=== PATIENT | male | born 1985 | race Caucasian/White ===

== ENCOUNTER 2021-07-20 16:47 | Emergency (ER) | payer BC, SELFPAY ==
[2021-07-20 17:33] VITALS: BP 133/101; PULSE 91; RESP 18; TEMP 36.3; O2SAT 100
--- NOTE | 2021-07-20 17:59 | ED.GENADULT ---
HPI - General Adult General Chief complaint: Ear Stated complaint: ringing in both ears Time Seen by Provider: 07/20/21 17:49 Source: patient and RN notes reviewed Mode of arrival: ambulatory Limitations: no limitations History of Present Illness HPI narrative: Patient presents today complaining of a 2.5-week history of bilateral ear pressure, sinus pressure and congestion. He had been taking Sudafed, which helped with his nasal congestion, and this has mostly resolved. The ear pressure and sinus pressure has persisted. He also reports muffled hearing bilaterally. Denies ear pain. He took 2-1/2 days of an old prescription of amoxicillin, which she does state has helped slightly. MD complaint: Ear pressure, sinus pressure Related Data Allergies Allergy/AdvReac Type Severity Reaction Status Date / Time No Known Allergies Allergy Verified 07/20/21 17:38 Review of Systems Review of Systems: CONSTITUTIONAL: Denies body aches, fever, chills, or sweats. EYES: Denies visual changes, redness, or discharge. ENT: Denies rhinorrhea, congestion, sore throat, or otalgia.+ Ear pressure, sinus pressure CARDIOVASCULAR: Denies chest pain, palpitations, or edema. RESPIRATORY: Denies cough or dyspnea. GASTROINTESTINAL: Denies abdominal pain, nausea, vomiting, or diarrhea. GENITOURINARY: Denies dysuria or hematuria. SKIN: Denies rash, itching, or wounds. MUSCULOSKELETAL: Denies back pain, joint pain, or myalgia. NEUROLOGIC: Denies headache, numbness, tingling, or weakness. PSYCH: Denies depression or anxiety. PMFSH Comments At time of signature, I have reviewed and agree with nursing past medical, surgical, social and family history unless otherwise noted. Please see nursing chart for further information. There is no relevant family history pertinent to the presenting complaint Exam Narrative: GENERAL: Well-appearing, well-nourished, and in no acute distress. HEAD: Normocephalic, atraumatic. EYES: EOMI. No redness or drainage. Conjunctivae normal. ENT: Mucous membranes pink and moist. Nares clear. No rhinorrhea. Bilateral TMs are injected and have purulent discharge behind them, R>L. Throat normal. Bilateral frontal and maxillary sinus tenderness. Uvula midline. NECK: Normal AROM. Supple. No lymphadenopathy. CHEST: No respiratory distress. Clear to auscultation. HEART: Regular rate and rhythm. No murmur appreciated. Normal peripheral pulses. ABDOMEN: Soft, nontender, nondistended, normal active bowel sounds. MUSCULOSKELETAL: No bony tenderness. EXTREMITIES: Normal range of motion. No edema. SKIN: Warm, dry, no rash. Capillary refill normal. Normal skin turgor. NEURO: No focal deficits. Alert and oriented x3. Gait steady. PSYCH: Normal affect. No signs of depression or anxiety. Course Course Level of Care: Express Care Visit Vital Signs Vital signs: Vital Signs Temperature 97.4 F L 07/20/21 17:33 Pulse Rate 91 07/20/21 17:33 Respiratory Rate 18 07/20/21 17:33 Blood Pressure 133/101 H 07/20/21 17:33 Pulse Oximetry 100 07/20/21 17:33 Temperature 97.4 F L 07/20/21 17:33 Pulse Rate 91 07/20/21 17:33 Respiratory Rate 18 07/20/21 17:33 Blood Pressure 133/101 H 07/20/21 17:33 Pulse Oximetry 100 07/20/21 17:33 Reviewed. Pt has been instructed to follow up with his PCP regarding his elevated blood pressure today. Medical Decision Making Differential Diagnosis Differential Diagnosis: Otitis media, sinusitis, URI, rhinitis, otitis externa Vital Signs Vital Signs: Vital Signs Temperature 97.4 F L 07/20/21 17:33 Pulse Rate 91 07/20/21 17:33 Respiratory Rate 18 07/20/21 17:33 Blood Pressure 133/101 H 07/20/21 17:33 Pulse Oximetry 100 07/20/21 17:33 Temperature 97.4 F L 07/20/21 17:33 Pulse Rate 91 07/20/21 17:33 Respiratory Rate 18 07/20/21 17:33 Blood Pressure 133/101 H 07/20/21 17:33 Pulse Oximetry 100 07/20/21 17:33 Critical Care Time Critical Care Time
== END 2021-07-20 18:10 | disposition home or self-care (01) ==
PROVIDERS: Emergency Provider Nurse Practitioner
DX: H66.003 Acute suppurative otitis media without spontaneous rupture of ear drum, bilateral (principal); J01.90 Acute sinusitis, unspecified
CPT/HCPCS: 99203; G0463

== ENCOUNTER 2024-09-18 08:41 | Emergency (ER) | payer OTHER, SELFPAY ==
[2024-09-18 08:53] VITALS: BP 142/90; PULSE 84; RESP 18; TEMP 36.4; O2SAT 99
--- NOTE | 2024-09-18 08:54 | ED.EAR ---
HPI - Ear Problem General Stated complaint: RT Ear Pain Time Seen by Provider: 09/18/24 08:57 Source: patient Mode of arrival: ambulatory Limitations: no limitations History of Present Illness HPI Narrative: 39-year-old male presented for complaint of bilateral ear pain over the last few days. Endorses pressure radiating into the jaws. He states he has a flight in a week and the last time he had similar symptoms his eardrum ruptured. Patient currently denies decreased hearing, tinnitus, dizziness, nasal congestion, nausea, vomiting, fevers. Not taking anything for symptoms. MD Complaint: ear pain Related Data Allergies Allergy/AdvReac Type Severity Reaction Status Date / Time No Known Allergies Allergy Verified 07/20/21 17:38 Review of Systems Review of Systems: CONSTITUTIONAL: Denies malaise, chills, or fever. EYES: Denies visual changes, redness, or discharge. ENT: Denies rhinorrhea, congestion, sinus pain, and sore throat. Reports ear pain CARDIOVASCULAR: Denies chest pain, palpitations, or edema. RESPIRATORY: Denies cough or dyspnea. GASTROINTESTINAL: Denies abdominal pain, nausea, vomiting, diarrhea SKIN: Denies rash or itching. MUSCULOSKELETAL: Denies myalgia. NEUROLOGIC: Denies headache. All systems reviewed & are unremarkable except as noted in HPI and below PMFSH Comments At time of signature, agree with nursing past medical, surgical, social and family history. There is no relevant family history pertinent to the presenting complaint Exam Narrative: GENERAL: Well-appearing EYES: PERRLA, conjunctivae clear ENT: Nares clear. Mucous membranes moist. Right TM pearly ayoub with dull light reflex; left TM erythematous, bulging and intact; canal not erythematous, no drainage no tragal tenderness. Oropharynx not erythematous without lesions. no drooling, no hoarseness, no trismus, uvula midline. NECK: Supple. No lymphadenopathy CHEST: Clear to auscultation, breath sounds equal. HEART: Regular rate and rhythm. SKIN: Warm, dry, no rash. NEURO: Alert and oriented x3. Course Course Emergency Course: Patient is aware of diagnosis, understands and agrees to treatment plan. Anticipatory guidance given. Patient agrees to follow-up as directed and is aware of reasons to seek care at the emergency department. Portions of this record may have been created with voice recognition software Level of Care: Express Care Visit Vital Signs Vital signs: Vital Signs Temperature 97.6 F 09/18/24 08:53 Pulse Rate 84 09/18/24 08:53 Respiratory Rate 18 09/18/24 08:53 Blood Pressure 142/90 H 09/18/24 08:53 Pulse Oximetry 99 09/18/24 08:53 Oxygen Delivery Room Air 09/18/24 08:53 Temperature 97.6 F 09/18/24 08:53 Pulse Rate 84 09/18/24 08:53 Respiratory Rate 18 09/18/24 08:53 Blood Pressure 142/90 H 09/18/24 08:53 Pulse Oximetry 99 09/18/24 08:53 Oxygen Delivery Room Air 09/18/24 08:53 Reviewed Medical Decision Making MDM Narrative Medical decision making narrative: Discussed physical exam findings; consistent with left AOM. Advised supportive measures and signs/symptoms to go to the ER. Patient is appropriate for outpatient treatment and follow-up. Differential Diagnosis Differential Diagnosis: Coronavirus, strep pharyngitis, allergic rhinitis, upper respiratory tract infection, sinusitis, rhinosinusitis, nasopharyngitis, viral pharyngitis, otitis media, otitis externa, eustachian tube dysfunction, foreign body, cerumen impaction. Vital Signs Vital Signs: Vital Signs Temperature 97.6 F 09/18/24 08:53 Pulse Rate 84 09/18/24 08:53 Respiratory Rate 18 09/18/24 08:53 Blood Pressure 142/90 H 09/18/24 08:53 Pulse Oximetry 99 09/18/24 08:53 Oxygen Delivery Room Air 09/18/24 08:53 Temperature 97.6 F 09/18/24 08:53 Pulse Rate 84 09/18/24 08:53 Respiratory Rate 18 09/18/24 08:53 Blood Pressure 142/90 H 09/18/24 08:53 Pulse Oximetry 99 09/18/24 08:53 Oxygen Delivery Room Air 09/18/24 08:53 Discharge Plan Discharge Clinical Impression: Acute left otitis media Patient Disposition: Home, Self-Care Condition: Stable Instructions: Antibiotic Form, Ear Infection (ED) Additional Instructions: Take antibiotics as directed. Recommendations: antihistamine such as Benadryl, Zyrtec or Elsy along with Flonase nasal spray, 1 spray in each nostril once daily until symptoms improve Tylenol and ibuprofen every 8 hours as needed to reduce fever, pain Please schedule a follow-up visit with your personal physician If your symptoms persist, change or worsen significantly, go to the emergency department for further evaluation. Patient Language: Mauritanian Prescriptions: New amoxicillin-pot clavulanate 875-125 mg tablet 1 tablet PO Q12H 7 Days Qty: 14 0RF No Action amoxicillin-pot clavulanate [Augmentin] 875-125 mg tablet 1 tablet PO Q12H 10 Days Qty: 20 0RF Follow-up/Referrals: Eduin,Rakesh [Other] Time of Disposition: 09:07
--- OUTSIDE RECORDS SUMMARY | 2024-09-18 09:03 | XMS_ITS | Encounter Summary ---
Author Organization [facility] Address [address] [place] [address] Care Team Providers Care Trench Pipe Layer Name Role Phone Unavailable Primary Care Provider Unavailabl e Encounter Details Date Type Department Care Team (Late st Contact Info) Description 01/06/2023 Lab Requisition [facility] - DermPath Lab [address] [facility] [facility] [place] [id number] Brooklyn Wagner PA-C [address] [place] [address] Neoplasm of uncertain behavior of skin Social History Tobacco Use Types Packs/Day Years Used Date Smoking Tobacco: Never Assessed Sex and Gender Information Value Date Recorded Sex Assigned at Not on file Gender Identity Not on file Sexual Orientation Not on file documented as of this encounter Plan of Treatment Not on file documented as of this encounter Procedures Procedure Name Priority Date/Time Associated Diagnosis Comments DERMATOPATHOLOGY Routine 01/06/2023 12:0 0 AM CDT Neoplasm of uncertain behavior of skin [ICD-10-CM] documented in this encounter Results * DERMATOPATHOLOGY (01/06/2023 12:00 AM CDT) Case Report Dermatopathology Report Case: [id number] Authorizing Provider: Brooklyn Wagner PA-C Collected: 01/06/2023 12:00 AM Ordering Location: [facility] DermPath Lab Received: 01/07/2023 01:06 PM Pathologist: Era Andrade MD Specimen: Skin, right occipital scalp 3 4:07 PM CDT DERMATOPATHOLOGY LABORATORY Final Diagnosis Specimen A. SKIN, right occipital scalp: FOLLICULITIS, SUPPURATIVE, IN ASSOCIATION WITH BACTERIA; SUPERFICIAL PORTIONS OF (L73.8) (see microscopic description and comment) 3 4:07 PM CDT DERMATOPATHOLOGY LABORATORY Clinical History Basal Cell Carcinoma 3 4:07 PM CDT DERMATOPATHOLOGY LABORATORY Gross Description Specimen A: Received is one formalin filled container labeled with the patient's name and designated right occipital scalp. The specimen consists of a shave biopsy measuring 9x6x3 mm. Jar 0. 3 4:07 PM CDT DERMATOPATHOLOGY LABORATORY Microscopic Description Specimen A. SKIN, right occipital scalp: Sections show superficial portions of rupture of the follicular infundibulum, with numerous neutrophils. Tissue gram stain highlights intrafollicular bacteria. Grocott's methenamine silver (GMS) stain fails to highlight fungal elements in the available sections. Additional deeper sections were obtained and reviewed. COMMENT: Clinical correlation with culture is recommended if clinically indicated. 3 4:07 PM CDT DERMATOPATHOLOGY LABORATORY Disclaimer An external and internal positive and negative controls are appropriate for the histochemical, immunohistochemical and immunofluorescence stain(s) in this case (if any), except where stated explicitly. The performance characteristics of the stain(s) cited in this report were developed and its performance characteristic determined by the Dermatopathology Laboratory at [facility], directed by Dr. Joseph Ac. These tests need not be, and therefore are not, approved by the [place] Food and Drug Administration. The tests are used for clinical purposes. Billing Codes Specimen Charges Stain Charges 75252 1 [id number] [id number] 1 1 3 4:07 PM CDT DERMATOPATHOLOGY LABORATORY Embedded Images 3 4:07 PM CDT DERMATOPATHOLOGY LABORATORY Pathology/Cytolog y TISSUE SPECIMEN FROM SKIN / Unknown 01/06/2023 01/07/2023 1:06 PM CDT Brooklyn Wagner PA-C LAB - PATHOLOGY/CYTO LOGY ORDERABLES DERMATOPATHOLOGY LABORATORY [facility] - Department of Dermatology [address] [phone] documented in this encounter Visit Diagnoses Diagnosis Neoplasm of uncertain behavior of skin documented in this encounter
--- OUTSIDE RECORDS SUMMARY | 2024-09-18 09:03 | XMS_ITS | Patient Health Summary ---
Author Organization [facility] Address [address] [facility] [place] [address] Care Team Providers Care Building Construction Inspector Name Role Phone Unavailable Primary Care Provider Unavailabl e Note from [facility],non-owned Affiliates and Associated Physician Practices is amultiple site organization consisting of ambulatory clinics and hospital sitesin [place], [place], [place] and [place]. This disclosure is being madepursuant to the Care Everywhere program and may not contain all information available regarding this patient. Last updated 18.[facility] Social History Tobacco Use Types Packs/Day Years Used Date Smoking Tobacco: Never Assessed Sex and Gender Information Value Date Recorded Sex Assigned at Not on file Gender Identity Not on file Sexual Orientation Not on file Procedures * DERMATOPATHOLOGY(Performed 01/06/2023) Performed for Neoplasm of uncertain behavior of skin [ICD-10-CM] Results * DERMATOPATHOLOGY (01/06/2023 12:00 AM CDT) Case Report Dermatopathology Report Case: [id number] Authorizing Provider: Brooklyn Wagner PA-C Collected: 01/06/2023 12:00 AM Ordering Location: [facility] DermPath Lab Received: 01/07/2023 01:06 PM Pathologist: [...] 9x6x3 mm. Jar 0. 3 4:07 PM T DERMATOPATHOLOGY LABORATORY Microscopic Description Specimen A. SKIN, right occipital scalp: Sections show superficial portions of rupture of the follicular infundibulum, with numerous neutrophils. Tissue gram stain highlights intrafollicular bacteria. Grocott's methenamine silver (GMS) stain fails to highlight fungal elements in the available sections. Additional deeper sections were obtained and reviewed. COMMENT: Clinical correlation with culture is recommended if clinically indicated. 3 4:07 PM T DERMATOPATHOLOGY LABORATORY Disclaimer An external and internal positive and negative controls are appropriate for the histochemical, immunohistochemical and immunofluorescence stain(s) in this case (if any), except where stated explicitly. The performance characteristics of the stain(s) cited in this report were developed and its performance characteristic determined by the Dermatopathology Laboratory at [facility], directed by Dr. Joseph Ac. These tests need not be, and therefore are not, approved by the [place] Food and Drug Administration. The tests are used for clinical purposes. Billing Codes Specimen Charges Stain Charges 99156 1 [id number] [id number] 1 1 3 4:07 PM CDT DERMATOPATHOLOGY LABORATORY Embedded Images 3 4:07 PM CDT DERMATOPATHOLOGY LABORATORY Pathology/Cytolog y TISSUE SPECIMEN FROM SKIN / Unknown 01/06/2023 01/07/2023 1:06 PM CDT Brooklyn Wagner PA-C LAB - PATHOLOGY/CYTO LOGY ORDERABLES DERMATOPATHOLOGY LABORATORY [facility] - Department of Dermatology [address] [phone]
--- OUTSIDE RECORDS SUMMARY | 2024-09-18 09:03 | XMS_ITS | Clinical Summary ---
Author Organization [facility] Address [address] [place] [address] Care Team Providers Care Dimension Specification Inspector Name Role Phone Unavailable Primary Care Provider Unavailabl e Social History Tobacco Use Types Packs/Day Years Used Date Smoking Tobacco: Never Assessed Sex and Gender Information Value Date Recorded Sex Assigned at Not on file Legal Sex Male 7:42 PM CDT Gender Identity Not on file Sexual Orientation Not on file Plan of Treatment Health Maintenance Due Date Last Done Comments Annual Physical 1987 Hepatitis C 2002 DTaP, Tdap and Td Vaccines ( 1 - Tdap) 2003 Hepatitis B Vaccines (1 of 3 - 19+ 3-dose series) 2003 COVID-19 Vaccine (2023-2 5 season) 2024 Influenza Adult (#1) 2024 HPV Vaccines Aged Out No longer eligi ble based on patient's age to complete this topic Meningococcal B Vaccine Aged Out No l onger eligible based on patient's age to complete this topic Meningococcal Vaccine Aged Out No ángel regi eligible based on patient's age to complete this topic Pneumococcal Vaccine: Pediat rics (0 to 5 Years) and At-Risk Patients (6 to 64 Years) Aged Out No longer eligible b ased on patient's age to complete this topic RSV Immunizations Under 20 Months Aged Out No longer eligible based on patient's age to complete this topic
--- OUTSIDE RECORDS SUMMARY | 2024-09-18 09:03 | XMS_ITS | Referral Summary ---
Author Organization [facility] Address [address] [place] [address] Care Team Providers Care Complaint Evaluation Officer Name Role Phone Unavailable Primary Care Provider Unavailabl e Source Comments [facility],non-owned Affiliates and Associated Physician Practices is amultiple site organization consisting of ambulatory clinics and hospital sitesin [place], [place], [place] and [place]. This disclosure is being madepursuant to the Care Everywhere program and may not contain all information available regarding this patient. Last updated 18.[facility] [employer] Social History Tobacco Use Types Packs/Day Years Used Date Smoking Tobacco: Never Assessed Sex and Gender Information Value Date Recorded Sex Assigned at Not on file Gender Identity Not on file Sexual Orientation Not on file Plan of Treatment Not on file
--- OUTSIDE RECORDS SUMMARY | 2024-09-18 09:03 | XMS_ITS | Clinical Summary ---
Author Organization [facility] Address [address] [facility] [place] [address] Care Team Providers Care Vamp Throater Name Role Phone Unavailable Primary Care Provider Unavailabl e Source Comments [facility],non-owned Affiliates and Associated Physician Practices is amultiple site organization consisting of ambulatory clinics and hospital sitesin [place], [place], [place] and [place]. This disclosure is being madepursuant to the Care Everywhere program and may not contain all information available regarding this patient. Last updated 18.[facility] Social History Tobacco Use Types Packs/Day Years Used Date Smoking Tobacco: Never Assessed Sex and Gender Information Value Date Recorded Sex Assigned at Not on file Gender Identity Not on file Sexual Orientation Not on file Plan of Treatment Health Maintenance Due Date Last Done Comments LIPID TESTING 1984 HIV SCREENING 1999 HEPATITIS C SCREENING 04/27/2002 DTAP/TDAP/TD VACCINES (1 - Tdap) 2003 HEPATITIS B VACCINE (1 of 3 - 19+ 3-dose series) 2003 COVID-19 VACCINE (2023-2 5 season) 2024 INFLUENZA VACCINE (#1) 2024 DEPRESSION SCREENING 07/18/2024 ZOSTER VACCINE (1 of 2) 2034 HIB VACCINE Aged Out No longer eligi ble based on patient's age to complete this topic HPV VACCINE Aged Out No longer eligi ble based on patient's age to complete this topic MENINGOCOCCAL (Group B) VACCINE Aged Out No longer eligible based on patient's age to complete this topic MENINGOCOCCAL VACCINE Aged Out No ángel regi eligible based on patient's age to complete this topic PNEUMOCOCCAL VACCINE Aged Out No long er eligible based on patient's age to complete this topic
--- OUTSIDE RECORDS SUMMARY | 2024-09-18 09:03 | XMS_ITS | Clinical Summary ---
Author Organization [facility] [place] Address [address] [place] [address] Care Team Providers Care Fondant Cooker Name Role Phone Rakesh Denny MD Primary Care Provider [phone] Allergies No known active allergies Medications No known medications Active Problems No known active problems Social History Tobacco Use Types Packs/Day Years Used Date Smoking Tobacco: Never Assessed Sex and Gender Information Value Date Recorded Sex Assigned at Not on file Legal Sex Male 11:[address] TECH Gender Identity Not on file Sexual Orientation Not on file Last Filed Vital Signs Vital Sign Reading Time Taken Comments Blood Pressure 150/99 07/31/2020 4:[address] TECH Pulse 81 07/31/2020 4:[address] TECH Temperature 36.9 C (98.4 F) 07/31/2020 4:[address] TECH Respiratory Rate - - Oxygen Saturation - - Inhaled Oxygen Concentration - - Weight 111.6 kg (246 lb) 07/31/2020 4:[address] TECH Height 193 cm (6' 4 ) 07/31/2020 4:[address] TECH Body Mass Index 29.94 07/31/2020 4:[address] TECH Plan of Treatment Health Maintenance Due Date Last Done Comments DTAP/TDAP/TD VACCINES (1 - Tdap) 2003 HEPATITIS B VACCINES (1 of 3 - 19+ 3-dose series) 2003 INFLUENZA VACCINE (#1) 2024 HPV VACCINES Aged Out No longer eligi ble based on patient's age to complete this topic PNEUMOCOCCAL VACCINE 0-49 YEARS Aged Out No longer eligible based on patient's age to complete this topic Insurance BLUE ACCESS CHOICE Care Teams Fondant Cooker Relationship Specialty Start Date End Date Rakesh Denny MD [facility] [place] [address] PCP - General 07/31/20
== END 2024-09-18 09:24 | disposition home or self-care (01) ==
PROVIDERS: Emergency Provider Nurse Practitioner Family
DX: H66.92 Otitis media, unspecified, left ear (principal)
CPT/HCPCS: 99213; G0463